=== PATIENT | male | born 1955 | race Caucasian/White ===

== ENCOUNTER 2019-06-13 11:53 | Outpatient (CLI) | payer MEDICARE ==
--- NOTE | 2019-06-13 12:23 | RAD ---
Right knee 4 views HISTORY: Right knee pain. FINDINGS: Mild to moderate joint space narrowing medial compartment with well-corticated irregularity along the far medial articular surface. This may represent an old osteochondral defect. Osteophytosis most pronounced at the medial compartment. Subcortical cysts at the medial and lateral compartments. Fluid distends the suprapatellar bursa on t he lateral view. IMPRESSION : Moderate osteoarthritic changes most pronounced at the medial compartment with an old medial femoral condyle osteochondral defect. Large joint effusion.
--- NOTE | 2019-06-13 13:16 | RAD ---
LEFT KNEE 4 VIEWS: INDICATION: Left knee pain. COMPARISON: None. FINDINGS: There is mild to moderate osteoarthrosis of the left knee with posteromedial intraarticular bodies me asuring 1 cm and 4.4 mm in size. There is enthesopathic change off the patella. There is mild joint capsular distention. No acute fracture is evident. IMPRESSION: Mild to moderate osteoarthrosis of the left knee with intraarticular bodies. POS: [facility]
== END 2019-06-13 11:54 | disposition home or self-care (01) ==
LOC: BICRAD 11:53
PROVIDERS: ATTEND Specialist
DX: M25.561 Pain in right knee (principal); M25.562 Pain in left knee; M17.0 Bilateral primary osteoarthritis of knee; M25.461 Effusion, right knee

== ENCOUNTER 2020-02-18 06:34 | Outpatient (CLI) | payer MEDICARE ==
[2020-02-18 11:02] LABS: Bilirubin Neg (Negative); Blood, Urine Negative (Negative); Clarity Clear (Clear); Glucose, Urine (Dipstick) Normal (Negative); Ketone, Urine 5 mg/dL (Negative); Leukocyte Negative (Negative); Nitrite Negative (Negative); Protein, Urine (Dipstick) Negative (Neg-Trace); Urobilinogen Normal mg/dL (Less than 2)
[2020-02-18 11:03] LABS: #Basophils 0.1 10x3/uL (0.0-0.2); #Eosinphils 0.2 10x3/uL (0.0-0.5); #Monocytes 0.4 10x3/uL (0.0-1.1); #Neutrophils 3.9 10x3/uL (1.5-8.4); %Basophils 0.9 % (0.0-2.0); %Eosinophils 3.7 % (0.0-6.0); %Lymphocytes 20.8 % (18.0-47.0); %Monocytes 6.8 % (0.0-10.0); %Neutrophils 67.6 % (40.0-75.0); Hemoglobin 14.2 g/dL (14.0-18.0); Mean Corpuscular HGB CONC 32.6 G/DL (32.0-36.0); Mean Corpuscular Hemoglobin 32.8 PG (27.0-33.0); Mean Corpuscular Volume 100.7 fl (80.0-100.0); Mean Platelet Volume 10.5 fl (7.4-10.4); Platelet Count 167 10x3/uL (130-400); RBC Distribution Width 13.5 % (11.5-14.5); Red Blood Cell (RBC) Count 4.33 10x6/uL (4.40-5.80); White Blood Cell (WBC) Count 5.7 10x3/uL (4.5-11.0)
[2020-02-18 11:25] LABS: Prothrombin Time 10.1 sec (9.5-12.1)
[2020-02-18 11:26] LABS: Bacteria/HPF None Seen HPF (None Seen); RBC/HPF None Seen HPF (0-3); Squamous Epithelial None Seen HPF (0-3); WBC/HPF None Seen HPF (0-3)
[2020-02-18 12:04] LABS: Anion Gap 16 mmol/L (10-20); BUN (Urea Nitrogen) 40 mg/dL (8.4-25.7); Calc. Creatinine Clearance 0 mL/min (70-130); Calcium 9.3 mg/dL (7.8-10.44); Carbon Dioxide 24 mmol/L (23-31); Chloride 106 mmol/L (98-107); Glucose 71 mg/dL (80-115); Potassium 4.8 mmol/L (3.5-5.1); Sodium 141 mmol/L (136-145)
[2020-02-18 20:53] LABS: SARS-CoV-2 MS2 Positive; SARS-CoV-2 N Gene Negative; SARS-CoV-2 S Gene Negative; SARS-CoV-2 by NAA Not Detected (NotDetected); SARS-CoV-2 orf1ab Negative
== END 2020-02-18 06:35 | disposition home or self-care (01) ==
LOC: LABBT 06:34
PROVIDERS: ATTEND Orthopaedic Surgery
DX: Z01.818 Encounter for other preprocedural examination (principal); M17.0 Bilateral primary osteoarthritis of knee; Z20.828 Contact with and (suspected) exposure to other viral communicable diseases
CPT/HCPCS: 80048; 81001; 85025; 85610; 87081; 93005; U0003; 87635; 93010

== ENCOUNTER 2020-02-23 08:42 | Inpatient (IN) | payer MEDICARE ==
--- NOTE | 2020-02-19 13:58 | HP ---
HISTORY OF PRESENT ILLNESS: The patient is a 64-year-old male with a several year history of bilateral knee pain, right greater than left. It seems to become much worse over the past month without specific injury. He has had progressive problems despite rest, restriction of activities, anti-inflammatory medications, cortisone injections, and Synvisc injections. He has not been able to tolerate NSAIDs well because of altered renal function. The pain is now interfering with day-to-day activities including walking, getting dressed, and sleeping. PAST HISTORY: As noted above. The patient also has history of hypertension, gout, and reflex. He has had previous appendectomy. CURRENT MEDICATIONS: Include; 1. Clonidine. 2. Uloric. 3. Pravastatin. 4. Christiane. 5. ProAir. 6. . ALLERGIES: HE HAS NO KNOWN ALLERGIES. FAMILY HISTORY: Otherwise, unremarkable. SOCIAL HISTORY: Otherwise, unremarkable. REVIEW OF SYSTEMS: Otherwise, unremarkable. PHYSICAL EXAMINATION: GENERAL: Reveals a healthy male. HEENT: Unremarkable. NECK: Supple. CHEST: Clear. HEART: Regular rate and rhythm. ABDOMEN: Soft and nontender. RECTAL AND GENITAL: Deferred. Extremities: Pertinent findings related to his knees, there is a trace effusion on the right and on the left. There is mild varus deformity bilaterally. His gait is slow, but normal. There is tenderness over the medial joint line bilaterally, right greater than left. There is mild crepitus with range of motion. Range of motion is 0 to 115 degrees on the right and 0 to 125 degrees on the left. There is no instability. Neurovascular exam is intact. There are palpable distal pulses. DIAGNOSTIC STUDIES: X-rays of both knees reveal severe DJD and medial joint space narrowing bilaterally. IMPRESSION: 1. Degenerative arthritis of both knees, right symptomatic more than left. 2. History of hypertension. PLAN: Right total knee replacement. He may eventually require a staged left total knee replacement. The nature of the surgery, length of recovery, and potential complications such as infection, loss of motion, incomplete relief, delayed wound healing, neurovascular injury, thromboembolic phenomena, possible transfusion, and need for revision have been discussed in detail with the patient and his . Job ID: [id number]
[2020-02-20 14:19] VITALS: BMI 28.7
[2020-02-23] MEDS ORDERED: Vancomycin 1.5 GRAM/300 ML BAG ONE (08:57)
[2020-02-23] MEDS ORDERED: Sodium Chloride 0.9% 100 ML ONE (08:57)
[2020-02-23] MEDS ORDERED: Tranexamic Acid 1,000 MG/10 ML VIAL ONE ×2 (08:57→14:50)
[2020-02-23] MEDS ORDERED: Midazolam HCl 2 mg/2 ml Vial ONE ×2 (09:37→12:25)
[2020-02-23] MEDS ORDERED: Fentanyl 100 MCG/2 ML VIAL ONE ×2 (09:37→15:20)
[2020-02-23] MEDS ORDERED: Lidocaine 1% PF 5 ML VIAL ONE (09:55)
[2020-02-23] MEDS ORDERED: Ropivacaine 0.2% HCl/PF (40 MG/20 ML VIAL) ONE (09:55)
[2020-02-23] MEDS ORDERED: Glycopyrrolate 0.2 MG/ML 5 ML SYRINGE ONE (09:55)
[2020-02-23] MEDS ORDERED: Dexamethasone 20 MG/5 ML VIAL ONE (09:55)
[2020-02-23] MEDS ORDERED: Bupivacaine HCl 0.5%/Epinephrine 1:200,000/PF 30 ml Vial ONE (09:55)
[2020-02-23] MEDS ORDERED: Ondansetron PF 4 MG/2 ML Vial ONE (09:55)
[2020-02-23] MEDS ORDERED: PROPOFOL 200 MG/20 ML VIAL ONE (09:55)
[2020-02-23] MEDS ORDERED: ePHEDrine 50 MG/ML VIAL ONE (09:55)
[2020-02-23] MEDS ORDERED: Fentanyl 100 MCG/2 ML VIAL IV PRN (11:06)
[2020-02-23] MEDS ORDERED: Ropivacaine HCl/PF 250 ML in Premix Bag 1 BAG NERVE BLCK SCH (11:15)
[2020-02-23] MEDS ORDERED: Promethazine HCl 25 MG/ML VIAL IM PRN ×2 (11:15→14:24)
[2020-02-23] MEDS ORDERED: HYDROcodone/Acetaminophen 10/325 mg Tablet PO PRN ×3 (11:15→14:25)
[2020-02-23] MEDS ORDERED: Ondansetron PF 4 MG/2 ML Vial IVP PRN ×2 (11:15→14:25)
[2020-02-23] MEDS ORDERED: traMADol HCl 50 MG TAB PO PRN ×3 (11:15→14:25)
[2020-02-23] MEDS ORDERED: Zolpidem Tartrate 5 MG TAB PO PRN ×2 (11:15→14:25)
[2020-02-23] MEDS ORDERED: EPINEPHrine 1 MG/ML AMP ONE (12:31)
[2020-02-23] MEDS ORDERED: Bupivacaine 0.25% HCL 30 ML VIAL ONE (12:31)
[2020-02-23] MEDS ORDERED: Ondansetron HCl/PF 4 MG/2 ML Vial IVP PRN (14:24)
[2020-02-23] MEDS ORDERED: Promethazine HCl 25 MG/ML VIAL SLOW IVP PRN ×2 (14:24→14:25)
[2020-02-23] MEDS ORDERED: Fentanyl 100 MCG/2 ML VIAL SLOW IVP PRN ×2 (14:25)
[2020-02-23] MEDS ORDERED: diphenhydrAMINE 25 MG CAP PO PRN (14:25)
[2020-02-23] MEDS ORDERED: Acetaminophen 325 MG TAB PO PRN (14:25)
[2020-02-23] MEDS ORDERED: Tranexamic Acid 1,000 MG in Sodium Chloride 0.9% 100 ML IVPB SCH ×2 (14:25→14:30)
--- NOTE | 2020-02-23 14:58 | RAD ---
XR Knee Rt 2 View History: Total knee postop Comparison: Knee radiograph January 2020 Findings: Satisfactory appearance right knee arthroplasty. Expected postoperative gas and edema. Impression: Satisfactory postoperative appearance.
--- NOTE | 2020-02-23 16:57 | OP ---
DATE OF PROCEDURE: 02/23/2020 ADVANCED MANUFACTURING CONSULTANT: Vernon Ybarra PA-C. The senior it assistant co-surgeon was present through the entire procedure and was responsible for providing exposure, tissue retraction, and any necessary limb or tissue manipulation required to obtain necessary reduction or hardware placement. The senior it assistant co-surgeon also provided bleeding control, tissue closure, and suturing in conjunction with the primary surgeon. ANESTHESIA: General plus adductor canal and sciatic nerve blocks. PREOPERATIVE DIAGNOSIS: Degenerative arthritis, right knee. POSTOPERATIVE DIAGNOSIS: Degenerative arthritis, right knee. PROCEDURE PERFORMED: Right total knee replacement with computer-assisted navigation with cemented [employer] components (#6 femoral component, #6 primary tibial baseplate with 11 mm CS plastic insert, and all-plastic A32 patellar component). DESCRIPTION OF PROCEDURE: After satisfactory anesthesia was induced in supine position, sequential compression device was placed on the nonoperative leg throughout the procedure. The patient's right leg was then prepped and draped in routine sterile fashion. The limb was elevated, exsanguinated with an Esmarch bandage and the tourniquet inflated to 300 mmHg. A gently curved medial parapatellar incision was made carried down through the subcutaneous tissues and bleeding points were controlled with Bovie cautery. Medial parapatellar arthrotomy was performed. Patella was dislocated laterally and portion of the fat pad were excised for exposure. There was marked degenerative arthritis of the knee especially medially with large areas of exposed bone, but there was also exposed bone laterally. Meniscal remnants and osteophytes were removed. Using the [employer] pinless navigation system and the appropriate guides, the distal femoral and proximal tibial articular surfaces were excised with an oscillating saw to accept the trial components. It was felt that #6 femoral component and #6 tibial baseplate with an 11 mm CS plastic insert gave appropriate size, fit, and stability. The patellar articular surface was excised to accept all-plastic A32 patellar component. There was good range of motion and good patellar tracking. The trial components were removed. The knee was copiously irrigated with pulsatile lavage. The bony surfaces were thoroughly cleaned and dried. The permanent components were then cemented in a single stage using one package of cement premixed with 1 g of tobramycin powder. Excess cement was removed. There was again good fit and stability of the components. The knee was then copiously irrigated with pulsatile lavage. The medial retinaculum and quadriceps mechanism was closed with interrupted #2 Vicryl and a running #2 Quill. Subcutaneous tissues were closed with running 0 Quill suture and the skin closed with running subcuticular 3-0 Monoderm and SurgiSeal skin adhesive. Sterile bulky compressive dressing was applied. The tourniquet deflated after 77 minutes. The foot promptly pinked up. Sequential compression device was applied to the operated leg and he was awakened and taken to the recovery room in stable condition. There were no apparent intraoperative complications. The estimated blood loss was less than 100 mL. Job ID: [id number]
[2020-02-23] MEDS: Sodium Chloride 0.9% 1,000 ML IV SCH (19:11)
[2020-02-23] MEDS: CEFAZOLIN 2 GM in Premix Bag 1 BAG IVPB SCH (20:50)
[2020-02-23] MEDS: Aspirin 81 mg Enteric Coated Tablet PO SCH (20:50)
[2020-02-23] MEDS: Loratadine 10 MG TAB PO SCH (20:51)
[2020-02-23] MEDS: Lisinopril 5 MG TAB PO SCH (20:51)
[2020-02-23] MEDS: Allopurinol 100 MG TAB PO SCH (20:52)
[2020-02-23] MEDS: Metoprolol Tartrate 50 MG TAB PO SCH (20:53)
[2020-02-23] MEDS ORDERED: Vancomycin 1.5 GRAM/300 ML BAG 1.5 GM in Premix Bag 1 BAG IVPB SCH (21:00)
[2020-02-23] MEDS: Melatonin 3 MG TAB PO PRN (23:06)
[2020-02-24] MEDS: CEFAZOLIN 2 GM in Premix Bag 1 BAG IVPB SCH (04:55)
[2020-02-24] MEDS: Sodium Chloride 0.9% 1,000 ML IV SCH ×3 (05:24→19:41)
[2020-02-24 05:56] LABS: Hemoglobin 13.1 g/dL (14.0-18.0); Mean Corpuscular HGB CONC 34.4 g/dL (32.0-36.0); Mean Corpuscular Hemoglobin 35.2 pg (27.0-31.0); Mean Platelet Volume 7.8 fL (7.4-10.4); Platelet Count 131 thou/uL (130-400); RBC Distribution Width 12.3 % (11.5-14.5); Red Blood Cell (RBC) Count 3.72 mill/uL (4.70-6.10); White Blood Cell (WBC) Count 10.6 thou/uL (4.8-10.8)
[2020-02-24] MEDS: Senokot S 8.6-50 MG TAB PO SCH ×2 (08:27→19:56)
[2020-02-24] MEDS: Multivitamin W/ Minerals 1 TAB PO SCH (08:28)
[2020-02-24] MEDS: Aspirin 81 mg Enteric Coated Tablet PO SCH ×2 (08:28→19:55)
[2020-02-24] MEDS: HYDROcodone/Acetaminophen 10/325 mg Tablet PO PRN ×4 (08:33→21:09)
[2020-02-24] MEDS ORDERED: Calcium Carbonate 500 MG ChewTAB PO PRN (11:01)
[2020-02-24] MEDS: Allopurinol 100 MG TAB PO SCH (19:55)
[2020-02-24] MEDS: Loratadine 10 MG TAB PO SCH (19:55)
[2020-02-24] MEDS: Lisinopril 5 MG TAB PO SCH (19:56)
[2020-02-24] MEDS: Metoprolol Tartrate 50 MG TAB PO SCH (19:56)
[2020-02-24] MEDS ORDERED: FLU VACC QS2020-21(65YR UP)/PF 240 MCG/0.7 ML SYRINGE IM ONE (21:00)
[2020-02-25] MEDS: Melatonin 3 MG TAB PO PRN (01:20)
[2020-02-25] MEDS: HYDROcodone/Acetaminophen 10/325 mg Tablet PO PRN ×4 (01:20→12:29)
[2020-02-25] MEDS: Sodium Chloride 0.9% 1,000 ML IV SCH (06:12)
[2020-02-25 08:23] VITALS: BP 111/72; TEMP 98.1
[2020-02-25] MEDS: Multivitamin W/ Minerals 1 TAB PO SCH (08:58)
[2020-02-25] MEDS: Aspirin 81 mg Enteric Coated Tablet PO SCH (08:58)
[2020-02-25] MEDS: Senokot S 8.6-50 MG TAB PO SCH (09:00)
--- NOTE | 2020-03-01 08:55 | DIS ---
DATE OF ADMISSION: 02/23/2020 DATE OF DISCHARGE: 02/25/2020 DISCHARGE DISPOSITION: To home. ADMISSION DIAGNOSIS: End-stage tricompartmental osteoarthritis, right knee. DISCHARGE DIAGNOSIS: End-stage tricompartmental osteoarthritis, right knee. PROCEDURE PERFORMED: Right total knee arthroplasty. CONSULTANTS: [facility]. BRIEF CLINICAL HISTORY: The patient is a 64-year-old male, who was admitted to [facility] and underwent the above elective procedure on the date of admission without intra-, juhi-, or postoperative complication. The hospital course was unremarkable. At the time of discharge, the patient is afebrile, ambulatory without assistance utilizing a rolling walker in a full weightbearing fashion, tolerating a regular diet, and voiding without difficulty. The patient's incision is clean and closed without any erythema. DISCHARGE MEDICATIONS: Please see medication reconciliation form. We will be happy to see the patient on an as-needed basis between now and the patient's next scheduled appointment. CONDITION ON DISCHARGE: Stable. PROGNOSIS: Good. The social research assistant surgeon helped throughout the procedure by positioning the patient, stabilizing the limb, holding retractors, aligning the prosthesis, and closure of procedure site. Job ID: [id number]
== END 2020-02-25 13:12 | disposition home or self-care (01) | DRG 470 ==
LOC: SDC 08:42 → SURG A 10:00
PROVIDERS: ADMIT Orthopaedic Surgery; ATTEND Orthopaedic Surgery
PROC: 0SRC0J9 Replacement of Right Knee Joint with Synthetic Substitute, Cemented, Open Approach (ICD-10-PCS; principal; 2020-02-23)
PROC: 8E0YXBZ Computer Assisted Procedure of Lower Extremity (ICD-10-PCS; 2020-02-23)
DX: M17.0 Bilateral primary osteoarthritis of knee (principal); N18.4 Chronic kidney disease, stage 4 (severe); Z20.828 Contact with and (suspected) exposure to other viral communicable diseases; Z23 Encounter for immunization; I12.9 Hypertensive chronic kidney disease with stage 1 through stage 4 chronic kidney disease, or unspecified chronic kidney disease; J30.2 Other seasonal allergic rhinitis; M10.9 Gout, unspecified; K21.9 Gastro-esophageal reflux disease without esophagitis; Z87.891 Personal history of nicotine dependence; Z79.899 Other long term (current) drug therapy; Z90.49 Acquired absence of other specified parts of digestive tract
CPT/HCPCS: 36415; 85027; C1713; C1776; J0171; J0690; J1100; J2250; J2405; J2704; J2795; J3010; J3370; J3490; S0020